=== PATIENT | female | born 1975 | race American Indian/Alaskan Native ===

== ENCOUNTER 2023-01-01 03:27 | Day surgery (SDC) | payer OTHER ==
[~2023-01-01 03:27] MED LIST: CLIN300 PO; TRAM50 PO
== END 2023-01-01 22:42 | disposition home or self-care (01) ==
LOC: WOUND 03:27
DX: S31.104D Unspecified open wound of abdominal wall, left lower quadrant without penetration into peritoneal cavity, subsequent encounter (principal); X58.XXXD Exposure to other specified factors, subsequent encounter; C49.9 Malignant neoplasm of connective and soft tissue, unspecified; R19.09 Other intra-abdominal and pelvic swelling, mass and lump; I10 Essential (primary) hypertension; F17.210 Nicotine dependence, cigarettes, uncomplicated; Z88.5 Allergy status to narcotic agent
CPT/HCPCS: 99406; A9270; G0463

== ENCOUNTER 2023-01-08 01:50 | Day surgery (SDC) | payer OTHER | END 2023-01-08 23:00 | disposition home or self-care (01) | LOC: WOUND 01:50 | DX: S31.104D Unspecified open wound of abdominal wall, left lower quadrant without penetration into peritoneal cavity, subsequent encounter (principal); X58.XXXD Exposure to other specified factors, subsequent encounter; R19.09 Other intra-abdominal and pelvic swelling, mass and lump; C49.9 Malignant neoplasm of connective and soft tissue, unspecified | CPT/HCPCS: G0463 ==

== ENCOUNTER 2023-01-13 11:29 | Inpatient (IN) | payer OTHER ==
[~2023-01-13] VITALS: Ht 162.6 cm; Wt 136.9 kg
[2023-01-13] MEDS ORDERED: OXYC15ER PO ×2 (12:17→19:23)
[2023-01-13] MEDS ORDERED: OMEP20ER PO (12:18)
[2023-01-13] MEDS ORDERED: VENL25 PO (12:18)
[2023-01-13] MEDS ORDERED: Amlodipine Bes2.5 MG PO (12:18)
[2023-01-13] MEDS ORDERED: Zofran4 MG (12:19)
[2023-01-13] MEDS ORDERED: PROP10 PO (12:19)
[2023-01-13 13:03] LABS: BASOPHILS ABSOLUTE AUTO 0.03 K/mm3 (0.00-0.23); BASOPHILS PERCENT AUTO 0 % (0-2); EOSINOPHILS ABSOLUTE AUTO 0.07 K/mm3 (0.00-0.68); EOSINOPHILS PERCENT AUTO 1 % (0-6); Hematocrit 26.7 % (33.0-51.0); Hemoglobin 8.1 g/dL (11.5-16.0); IMMATURE GRAN ABSOLUTE AUTO 0.11 K/mm3 (0.00-0.10); IMMATURE GRAN PERCENT AUTO 1 % (0-1); LYMPHOCYTES ABSOLUTE AUTO 0.52 K/mm3 (0.84-5.20); LYMPHOCYTES PERCENT AUTO 5 % (21-46); MONOCYTES ABSOLUTE AUTO 0.74 K/mm3 (0.16-1.47); MONOCYTES PERCENT AUTO 7 % (4-13); Mean Corpuscular HGB 23.4 pg (26.0-34.0); Mean Corpuscular HGB Conc 30.3 g/dL (31.5-36.5); Mean Corpuscular Volume 77 fL (80-100); Mean Platelet Volume 9.8 fL (9.1-12.4); NEUTROPHILS ABSOLUTE AUTO 9.02 K/mm3 (1.96-9.15); NEUTROPHILS PERCENT AUTO 86 % (41-73); NRBC ABSOLUTE 0.02 K/mm3 (0.00-0.02); NRBC Auto 0.2 /100 WBC (0.0-0.2); Platelet Count 385 K/mm3 (150-400); RDW Coefficient Variation 17.3 % (11.7-14.2); RDW Standard Deviation 47.8 fL (35.1-46.3); Red Blood Cell Count 3.46 M/mm3 (3.80-5.20); White Blood Cell Count 10.49 K/mm3 (4.00-11.30)
[2023-01-13 13:16] LABS: Albumin, Blood 1.9 g/dL (3.4-5.0); Albumin/Globulin Ratio 0.4 (0.8-1.8); Bilirubin, Total 0.4 mg/dL (0.1-1.0); Bun/Creatinine Ratio 20.5 (12.0-20.0); Calcium, Blood 8.9 mg/dL (8.5-10.1); Creatinine, Blood 1.46 mg/dL (0.40-1.00); Globulin, Blood 4.7 g/dL (2.2-4.0); Total Protein, Blood 6.6 g/dL (6.4-8.2)
[2023-01-13 18:53] VITALS: BP 111/65
[2023-01-13] MEDS ORDERED: Inderal60 MG PO (18:58)
[2023-01-13] MEDS ORDERED: Prozac20 MG PO (19:21)
[2023-01-13] MEDS ORDERED: ONDA4 PO (19:21)
[2023-01-13] MEDS ORDERED: AMLO10 PO (19:22)
[2023-01-13] MEDS ORDERED: LOSA50 PO (19:22)
[2023-01-13] MEDS ORDERED: IBUP400 PO (19:24)
--- NOTE | 2023-01-14 01:45 | NUR ---
AMBULATED PT 1PA FWW TO BATHROOM. NOTICED TRAIL OF MARILUZ RED BLOOD DRIPPING FRO PT WOUND IN LLQ PANNUS AREA. TOXICOLOGIST AND HOSPITALIST NOTIFIED. HOSPITALIST GAVE INSTRUCTION TO PLACE PRESSURE DRESSING. DRESSING IN PLACE C/D/I WILL CHANGE PRN. WILL CONTINUE PT FOR BLEEDING.
--- NOTE | 2023-01-14 04:43 | NUR ---
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 PT HAS NEPHROSTOMY DRAINAGE SYSTEM IN L GROIN DRAINING SEROSANGUINOUS FLUID. PT REPORTS GETTING INTO TRUCK BEFORE COMING TO ED AND FEELING WOUND DRAINAGE SITE PULL. PT HAS SMALL AMOUNT OF MARILUZ RED BLOOD TRICKLING DOWN FROM SITE. IT APPEARS TO BE POSITIONAL. MERCHANDISE SUPERVISOR AND HOSPITALIST NOTIFIED. ABD PADS IN PLACE KEEPING PRESSUE ON AREA AND ABSORBING EXUDATE. PADS HAVE BEEN CHANGED TWICE DURING SHIFT. PT HAS PALLIATIVE CARE CONSULT PENDING TO FIGURE OUT NEXT STEP IN CARE PROCESS. PT HAS PUREWICK IN PLACE TO LIMIT FURTHER WOUND BLEEDING, LEGS ARE ELEVATED ON PILLOWS WELL. PT IS CURRENTLY RESTING WITH BED IN LOWEST POSITION, AND CALL LIGHT WITHIN REACH. WILL CONTINUE TO MONITOR WOUND FOR BLEEDING.
[2023-01-14 04:58] LABS: BASOPHILS ABSOLUTE AUTO 0.01 K/mm3 (0.00-0.23); BASOPHILS PERCENT AUTO 0 % (0-2); EOSINOPHILS PERCENT AUTO 0 % (0-6); Hematocrit 25.1 % (33.0-51.0); Hemoglobin 7.6 g/dL (11.5-16.0); IMMATURE GRAN ABSOLUTE AUTO 0.05 K/mm3 (0.00-0.10); IMMATURE GRAN PERCENT AUTO 1 % (0-1); LYMPHOCYTES PERCENT AUTO 4 % (21-46); MONOCYTES ABSOLUTE AUTO 0.27 K/mm3 (0.16-1.47); MONOCYTES PERCENT AUTO 3 % (4-13); Mean Corpuscular HGB 23.2 pg (26.0-34.0); Mean Corpuscular HGB Conc 30.3 g/dL (31.5-36.5); Mean Corpuscular Volume 77 fL (80-100); Mean Platelet Volume 9.3 fL (9.1-12.4); NEUTROPHILS ABSOLUTE AUTO 8.49 K/mm3 (1.96-9.15); NEUTROPHILS PERCENT AUTO 92 % (41-73); Platelet Count 367 K/mm3 (150-400); RDW Coefficient Variation 17.2 % (11.7-14.2); RDW Standard Deviation 47.8 fL (35.1-46.3); Red Blood Cell Count 3.28 M/mm3 (3.80-5.20); White Blood Cell Count 9.22 K/mm3 (4.00-11.30)
[2023-01-14 05:18] LABS: Albumin, Blood 1.8 g/dL (3.4-5.0); Albumin/Globulin Ratio 0.4 (0.8-1.8); Bilirubin, Total 0.3 mg/dL (0.1-1.0); Bun/Creatinine Ratio 25.7 (12.0-20.0); Calcium, Blood 8.7 mg/dL (8.5-10.1); Creatinine, Blood 1.01 mg/dL (0.40-1.00); Globulin, Blood 4.7 g/dL (2.2-4.0); Potassium, Blood 4.2 mmol/L (3.5-5.5); Total Protein, Blood 6.5 g/dL (6.4-8.2)
[2023-01-14 07:46] VITALS: BP 117/65
--- NOTE | 2023-01-14 12:33 | NUR ---
Pt is a 47 year old woman who was told this morning she has metastatic melanoma. She is having an MRI today, and understands there is no further treatment options availabe, and it is believed she has approx a month to live. She is aware of this, and has made her wishes clear. She states she would like to return home as soon as possible and begin hospice care. This pt is a 47 year old woman who was only recently informed she a has metasitatickof The pt is a 47 year old with metastatic melanoma. According to pt and her sister, she has made several trips to [place] since last July for multiple biopsies, with no difinitive answers until recently. She was seen for follow up at [facility] 11 days ago to develop a chemo plan. However, the pt's status has significantly changed since then, and now oncology states there is "no treatment options available" at this time, as pt has approx a month to live. She states to me she is aware she is dying. She is eager to go home, and she would like hospice. [facility] Tr[facility] Nidhi is working with hospice for an admission. Dr. Dong will await pt's MRI results before d/c to determine best medication for pt's newer onset of confusion that stopped right away with a dose of steroid. Pt is , and believes her will help her at home, along with her sister and a close female cousin. Palliative care will remain involved and continue to support this pt and family as needed. No symptoms currently present. \\\\\\\\\\\\\\\\\\\\\\\\\\\\\\\\\\\\\\\\\\\\\\\\\\\\\\\\\\\\\\\\\\\\\\\\\\\\\\\\\\\\\\\\\\\\\\\\\\\\\\\\\\\\\\\\\\\\\\\\\\\\\\\\\\\\\\\\\\\\\\\\\\\\\\\\\\\\ \\\\\\\\\\\\\\\\\\\\\\\\\\\\\\\\\\\\\\\\\\\\\\\\\\\\\\\\\\\\\\\\\\\\\\\\\\\\\\\\\\\\\\\\\\\\\\\\\\\\\\\\\\\\\\\\\\\\\\\\\\\\\\\\\\\\\\\\\\\\\\\\\\\\\\\\\\\\ \\\\\\\\\\\\\\\\\\\\\\\\\\\\\\\\\\\\\\\\\\\\\\\\\\\\\\\\\\\\\\\\\\\\\\\\\\\\\\\\\\\\\\\\\\\\\\\\\\\\\\\\\\\\\\\\\\\\\\\\\\\\\\\\\\\\\\\\\\\\\\\\\\\\\\\\\\\\ \\\\\\\\\\\\\\\\\\\\\\\\\\\\\\\\\\\\\\\\\\\\\\\\\\\\\\\\\\\\\\\\\\\\\\\\\\\\\\\\\\\\\\\\\\\\\\\\\\\\\\\\\\\\\\\\\\\\\\\\\\\\\\\\\\\\\\\\\\\\\\\\\\\\\\\\\\\\ \\\\\\\\\\\\\\\\\\\\\\\\\\\\\\\\\\\\\\\\\\\\\\\\\\\\\\\\\\\\\\\\\\\\\\\\\\\\\\\\\\\\\\\\\\\\\\\\\\\\\\\\\\\\\\\\\\\\\\\\\\\\\\\\\\\\\\\\\\\\\\\\\\\\\\\\\\\\ \\\\\\\\\\\\\\\\\\\\\\\\\\\\\\\\\\\\\\\\\\\\\\\\\\\\\\\\\\\\\\\\\\\\\\\\\\\\\\\\\\\\\\\\\\\\\\\\\\\\\\\\\\\\\\\\\\\\\\\\\\\\\\\\\\\\\\\\\\\\\\\\\\\\\\\\\\\\ \\\\\\\\\\\\\\\\\\\\\\\\\\\\\\\\\\\\\\\\\\\\\\\\\\\\\\\\\\\\\\\\\\\\\\\\\\\\\\\\\\\\\\\\\\\\\\\\\\\\\\\\\\\\\\\\\\\\\\\\\\\\\\\\\\\\\\\\\\\\\\\\\\\\\\\\\\\\ \\\\\\\\\\\\\\\\\\\\\\\\\\\\\\\\\\\\\\\\\\\\\\\\\\\\\\\\\\\\\\\\\\\\\\\\\\\\\\\\\\\\\\\\\\\\\\\\\\\\\\\\\\\\\\\\\\\\\\\\\\\\\\\\\\\\\\\\\\\\\\\\\\\\\\\\\\\\ \\\\\\\\\\\\\\\\\\\\\\\\\\\\\\\\\\\\\\\\\\\\\\\\\\\\\\\\\\\\\\\\\\\\
[2023-01-14 15:07] VITALS: BP 142/76
--- NOTE | 2023-01-14 16:34 | NUR ---
HOSPICE ORDER PLACED PER DR. WHITE. Also-- code status changed to DNR, as patient wishes. She verbalizes understanding of what it means, and also understands and states she is ready to discharge home tomorrow with [facility].
--- NOTE | 2023-01-14 18:31 | NUR ---
SHIFT SUMMARY: PT UNABLE TO TOLERATE MRI D/T EXTREME PAIN FROM LYING ON EXAM TABLE. REQUIRED DILAUDID 2 MG IV TO GET UNDER CONTROL. CODE STATUS CHANGED TO DNR, WILL BE GOING HOME TOMORROW ON HOSPICE, PURPLE WRIST BAND APPLIED. FENTANYL PATCH APPLIED TO R UPPER CHEST AND COVERED WITH TEGADERM FOR PROTECTION. L PANNUS/GROIN WOUND DRAINING DARK RED BLOOD, VERY MALODOROUS. NICOTINE PATCH ON L UPPER ARM. ABLE TO GET UP TO BSC WITH ASSISTANCE, NO BM TODAY.
[2023-01-14 21:49] VITALS: BP 112/84
[2023-01-15 02:00] VITALS: BP 99/58
--- NOTE | 2023-01-15 04:43 | NUR ---
SHIFT SUMMARCY NOC PT A/O X 4. DEPRESSED MOOD AFTER GETTING DISSAPPOINTING PROGNOSIS DURING DAY. PT EXPECTED TO DISHCARGE TODAY TO HOME HOSPICE. PT WOUND/INCISION PRODUCED 100ML OF SEROSANGEOUS OUTPUT. PT PAIN IN LLQ PANNUS/GROIN CONTROLLED WITH SCHEDULED OXYCODNE AND DILAUDID. PT RECEIVED BED BATH DURING SHIFT AND ABD PADS BETWEEN PANNUS REPLACED FOR EXCESS DRAINAGE FROM WOUNDS. PT IS CURRENTLY RESTING WITH BED IN LOWEST POSITION, AND CALL LIGHT WITHIN REACH.
[2023-01-15 07:34] VITALS: BP 132/76
[2023-01-15] MEDS ORDERED: SENN187 PO (10:26)
--- NOTE | 2023-01-15 10:27 | NUR ---
"Spiritual Care | Pt. Request Pt. is awake in bed and welcomes my visit. Pt. is quickly unsettled and emotional regarding the diagnosis of her cancer, with a prognosis of 4 months. Through theraputic listening and pastoral care Pt. displays evidence of reduced anxiety. As the Pt. became more composed, I facilitated a life review and considered matters of bianca in belief. Pt. displayed evidence of emotion ocassionally during the life review. Listened with interest and empathy. Prayed for the Pt. After prayer continued establishing rapport. Pt. displayed a disposition of lower anxiety and a phone representative mood. Pt. verbalized gratitude for the spiritual care visit."
--- NOTE | 2023-01-15 12:42 | NUR ---
PT DISCHARGED HOME WITH HOSPICE. DISCHARGE INSTRUCTIONS AND EDUCATION MATERIAL EXPLINED TO PT. PT NOTIFIED SIGNIFICANT OTHER, VIA PHONE, THAT SHE WAS DISCHARGING. NO NEW QUESTIONS OR CONCERNS. PERSCRIPTIONS FAXED TO [facility]. ABD DRESSINGS UNDER PT'S PANUS CHANGED. WOUND DRAIN EMPTIED. ALL BELONGINGS SENT WITH PT. PT TAKEN BY WHEELCHAIR BY [facility].
== END 2023-01-15 10:49 | disposition hospice, home (50) | DRG 54 ==
LOC: ER 11:29 → MEDS 11:30 → ENPENDDIS 01-15 09:41 → MEDS 01-15 10:49
PROVIDERS: Emergency Medicine; ADMIT Internal Medicine
DX: C79.31 Secondary malignant neoplasm of brain (principal); G92.8 Other toxic encephalopathy; N17.9 Acute kidney failure, unspecified; E87.1 Hypo-osmolality and hyponatremia; Z68.42 Body mass index [BMI] 45.0-49.9, adult; Z66 Do not resuscitate; Z51.5 Encounter for palliative care; C43.59 Malignant melanoma of other part of trunk; C43.9 Malignant melanoma of skin, unspecified; D63.8 Anemia in other chronic diseases classified elsewhere; F17.200 Nicotine dependence, unspecified, uncomplicated; I10 Essential (primary) hypertension; S31.104A Unspecified open wound of abdominal wall, left lower quadrant without penetration into peritoneal cavity, initial encounter; E66.01 Morbid (severe) obesity due to excess calories; K59.00 Constipation, unspecified; D50.9 Iron deficiency anemia, unspecified; Z88.5 Allergy status to narcotic agent
CPT/HCPCS: 36415; 74177; 80053; 83605; 83735; 85025; 94640; 94664; 94762; 96361; 96365-59; 96366; 96367; 96375; 96376; 99285-25; A9270; G0378; J1100; J1170; J2543; J3370; J7030; J7050; J7120; Q9967; S0077